=== PATIENT | male | born 1980 | race African-American/Black ===

== ENCOUNTER 2017-04-11 05:15 | Emergency (ER) | payer SELFPAY ==
[2017-04-11] MEDS ORDERED: HYDROcodone/Acetaminophen 5/325 mg Tablet ONE (06:16)
== END 2017-04-11 06:47 | disposition home or self-care (01) ==
LOC: ERS 05:15
DX: S02.2XXA Fracture of nasal bones, initial encounter for closed fracture (principal); F17.210 Nicotine dependence, cigarettes, uncomplicated; W22.8XXA Striking against or struck by other objects, initial encounter
CPT/HCPCS: 99406

== ENCOUNTER 2018-02-02 22:36 | Emergency (ER) | payer SELFPAY ==
[2018-02-03 01:05] LABS: Bilirubin Negative (Negative); Blood, Urine Negative (Negative); Clarity CLEAR (Clear); Glucose, Urine (Dipstick) Negative (Negative); Leukocyte Negative (Negative); Nitrite Negative (Negative); Protein, Urine (Dipstick) Negative (Neg-Trace); Specific Gravity, Urine 1.025 (1.002-1.036); pH, Urine 6.5 (5.0-9.0)
--- NOTE | 2018-02-03 07:50 | ULT ---
SCROTAL ULTRASOUND: INDICATION: Left-sided testicular pain. TECHNIQUE: Srivastava scale, color Doppler, and spectral Doppler images were obtained. FINDINGS: The right testicle measures 4.2 x 2.2 x 2.4 cm. The left testicle measures 4.3 x 2.1 x 3.1 cm. No i ntratesticular mass is evident. Small bilateral hydroceles. There is normal vascular flow to both t esticles. Small echogenic foci are seen within both testicles, suspicious for small microliths. The re are bilateral varicoceles demonstrated. IMPRESSION: 1. Bilateral varicoceles. 2. No intratesticular mass or torsion demonstrated. 3. Small bilateral hydroceles. 4. Small foci of internal reflectors involving the testicles suspicious for small microliths. A fol lowup testicular ultrasound in 1 year is recommended for surveillance purposes. POS: [facility]
== END 2018-02-03 01:31 | disposition home or self-care (01) ==
LOC: ERS 22:36
DX: K40.90 Unilateral inguinal hernia, without obstruction or gangrene, not specified as recurrent (principal); Z71.6 Tobacco abuse counseling; F17.210 Nicotine dependence, cigarettes, uncomplicated
CPT/HCPCS: 76870; 81003; 93976; 99406

== ENCOUNTER 2018-12-24 06:19 | Day surgery (SDC) | payer OTHER ==
[2018-12-23 10:35] VITALS: BMI 19.4
--- NOTE | 2018-12-23 13:38 | HP ---
HISTORY OF PRESENT ILLNESS: Solo Thompson is a 37-year-old black male, who works at painting and lifting windows, but has been unable to lift windows due the pain from his left inguinal hernia, which he has had for 3 years. It is enlarging and becoming more painful. He desires repair to continue to work. ALLERGIES: NONE. TOBACCO: One half pack per day. ALCOHOL: Socially, rarely. MEDICATIONS: None. HABITS: Drugs, none. PAST SURGICAL HISTORY: Noncontributory. PAST MEDICAL HISTORY: Noncontributory. FAMILY HISTORY: Noncontributory. REVIEW OF SYSTEMS: Ten-point noncontributory. PHYSICAL EXAMINATION: VITAL SIGNS: Weight 126 pounds, height 5 feet 8 inches, 19 BMI, blood pressure 105/68, heart rate 63, temperature 98.1 degrees. NEUROLOGICAL: Intact. HEAD, EYES, EARS, NOSE, AND THROAT: Unremarkable. LYMPHATIC: No lymphadenopathy in neck, axilla, or groins. LUNGS: Clear to auscultation. No wheezing. CARDIAC: Regular rate and rhythm without murmur or gallop. ABDOMEN: Soft and nontender. No masses. EXTREMITIES: No ankle edema. Good pulses. Right groin without hernia. Testicles normal. Left groin reveals a large hernia extending into the scrotum. ASSESSMENT AND PLAN: 1. Left inguinal hernia, enlarging, painful, interfering with his ability to work. We would recommend robot laparoscopic mesh repair as outpatient. He should be off from work for 2 weeks postoperatively. He should avoid lifting over 25 pounds for 1 week postoperatively. He is informed that he will have some swelling in his left scrotum. He can minimize this with a scrotal support and pressure over this area postoperatively. Between now and the time that he has this surgery, there are no lifting restrictions or restrictions other than that caused by his discomfort. 2. Tobacco abuse. Encourage cessation. Job ID: [id number]
[2018-12-24] MEDS ORDERED: Bupivacaine/Epinephrine 0.25% 30 ML VIAL ONE (06:48)
[2018-12-24] MEDS ORDERED: Ketorolac Tromethamine 30 MG/ML VIAL ONE (06:51)
[2018-12-24 06:58] LABS: #Basophils 0.1 thou/uL (0.0-0.2); #Eosinphils 0.8 thou/uL (0.0-0.7); #Lymphocytes 3.5 thou/uL (1.20-3.40); #Monocytes 0.6 thou/uL (0.11-0.59); #Neutrophils 4.4 thou/uL (1.40-6.50); %Basophils 1.3 % (0.0-1.0); %Lymphocytes 37.1 % (21.0-51.0); %Monocytes 6.7 % (0.0-10.0); %Neutrophils 46.9 % (42.0-75.0); Hemoglobin 16.5 g/dL (14.0-18.0); Mean Corpuscular HGB CONC 33.3 g/dL (32.0-36.0); Mean Corpuscular Hemoglobin 29.9 pg (27.0-31.0); Mean Corpuscular Volume 89.8 fL (78.0-98.0); Mean Platelet Volume 8.1 fL (7.4-10.4); Platelet Count 271 thou/uL (130-400); RBC Distribution Width 12.5 % (11.5-14.5); Red Blood Cell (RBC) Count 5.53 mill/uL (4.70-6.10); White Blood Cell (WBC) Count 9.5 thou/uL (4.8-10.8)
[2018-12-24] MEDS ORDERED: Fentanyl 100 MCG/2 ML VIAL ONE (06:59)
[2018-12-24 07:10] LABS: Anion Gap 11 mmol/L (10-20); BUN (Urea Nitrogen) 8 mg/dL (8.9-20.6); Calc. Creatinine Clearance 93 mL/min (70-130); Calcium 9.2 mg/dL (7.8-10.44); Carbon Dioxide 28 mmol/L (22-29); Chloride 103 mmol/L (98-107); Estimated GFR-MDRD Greater than 90; Glucose 88 mg/dL (70-105); Potassium 3.6 mmol/L (3.5-5.1); Sodium 138 mmol/L (136-145)
[2018-12-24] MEDS ORDERED: Rocuronium Bromide 10 MG/ML (10ML VIAL) ONE (10:01)
[2018-12-24] MEDS ORDERED: Glycopyrrolate 0.2 MG/ML 5 ML SYRINGE ONE (10:01)
[2018-12-24] MEDS ORDERED: Lidocaine 1% PF 5 ML VIAL ONE (10:01)
[2018-12-24] MEDS ORDERED: PROPOFOL 200 MG/20 ML VIAL ONE (10:01)
[2018-12-24] MEDS ORDERED: Ondansetron PF 4 MG/2 ML Vial ONE (10:01)
--- NOTE | 2018-12-24 11:18 | OP ---
DATE OF PROCEDURE: 12/24/2018 PREOPERATIVE DIAGNOSIS: Left inguinal hernia. POSTOPERATIVE DIAGNOSIS: Left inguinal hernia, indirect. ANESTHESIA: General, local 0.5% Marcaine with epinephrine 30 mL. PROCEDURE PERFORMED: Robot laparoscopic 3DMax Bard large mesh repair, left inguinal hernia. DESCRIPTION OF PROCEDURE: The patient was taken to the operating room, where under general anesthesia, Dixon catheter placed at the beginning of the procedure and removed at the end. Abdomen was prepared with ChloraPrep and draped in routine fashion, placed in slight Trendelenburg. Pneumoperitoneum to 15 mmHg was obtained with a Veress needle, placed to the left paramidline supraumbilical incision, and incision enlarged sharply and Veress needle replaced with an 11 mm balloon port, via the laparoscope inserted. Bilateral far lateral incisions were made and 8 mm port was placed. Robot was docked, secured, and robotic left inguinal hernia repair undertaken by creating the peritoneal flap from an anterior-superior iliac spine left to the midline, dropping the peritoneal flap, dissecting the cord structures free from the hernia sac reducing the hernia sac and creating the flap in the retroperitoneal area. Inferior epigastric kept free of harm. Once Shaan's ligament was identified, the Bard 3DMax large left mesh was inserted and placed over the pelvic floor and secured to Shaan ligament with 2-0 Vicryl, and to the anterior abdominal wall with 2-0 Vicryl just left lateral to inferior epigastric vessels. The peritoneal flap was then closed with continuous suture of 3-0 V-Loc suture. Pneumoperitoneum reduced after instruments removed and good hemostasis noted. All instruments were removed and left paramedian fascia was approximated with 0 Vicryl, and skin incision was approximated with 4-0 Monocryl. The patient tolerated the procedure well. Job ID: [id number]
== END 2018-12-24 11:50 | disposition home or self-care (01) ==
LOC: SDC 06:19
PROVIDERS: ATTEND Specialist
PROC: 0YU64JZ Supplement Left Inguinal Region with Synthetic Substitute, Percutaneous Endoscopic Approach (ICD-10-PCS; principal; 2018-12-24)
DX: K40.90 Unilateral inguinal hernia, without obstruction or gangrene, not specified as recurrent (principal); F17.210 Nicotine dependence, cigarettes, uncomplicated
CPT/HCPCS: 36415; 80048; 85025; C1781; J0131; J0690; J1885; J3010

== ENCOUNTER 2019-02-16 15:12 | Emergency (ER) | payer SELFPAY | END 2019-02-16 21:01 | disposition left against medical advice (07) | LOC: ERS 15:12 | DX: Z53.21 Procedure and treatment not carried out due to patient leaving prior to being seen by health care provider (principal) ==

== ENCOUNTER 2019-04-21 01:36 | Emergency (ER) | payer BC, SELFPAY ==
[2019-04-21] MEDS ORDERED: Lidocaine 1% (PF) 30 ML VIAL ONE (02:01)
== END 2019-04-21 02:36 | disposition home or self-care (01) ==
LOC: ERS 01:36
DX: L03.213 Periorbital cellulitis (principal); L02.01 Cutaneous abscess of face; F17.210 Nicotine dependence, cigarettes, uncomplicated; Z71.6 Tobacco abuse counseling
CPT/HCPCS: 10060; 99406; J2001

== ENCOUNTER 2019-07-16 17:14 | Emergency (ER) | payer BC ==
[2019-07-16] MEDS ORDERED: Ketorolac Tromethamine 30 MG/ML VIAL ONE (17:29)
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
== END 2019-07-16 18:00 | disposition home or self-care (01) ==
LOC: ERS 17:14
DX: S50.02XA Contusion of left elbow, initial encounter (principal); M54.5 Low back pain; F17.210 Nicotine dependence, cigarettes, uncomplicated; V43.62XA Car passenger injured in collision with other type car in traffic accident, initial encounter
CPT/HCPCS: 72100; 96372; J1885

== ENCOUNTER 2019-07-26 18:44 | Emergency (ER) | payer BC | END 2019-07-26 19:38 | disposition left against medical advice (07) | LOC: ERS 18:44 | DX: Z53.21 Procedure and treatment not carried out due to patient leaving prior to being seen by health care provider (principal) ==

== ENCOUNTER 2023-04-24 06:32 | Emergency (ER) | payer OTHER | END 2023-04-24 09:05 | disposition home or self-care (01) | LOC: ERS 06:32 | DX: S16.1XXA Strain of muscle, fascia and tendon at neck level, initial encounter (principal); M54.6 Pain in thoracic spine; F17.210 Nicotine dependence, cigarettes, uncomplicated; V89.2XXA Person injured in unspecified motor-vehicle accident, traffic, initial encounter | CPT/HCPCS: 71045; 72070; 72125 ==